=== PATIENT | male | born 1950 | race Asian ===

== ENCOUNTER 2018-06-16 20:04 | Emergency (ER) | payer OTHER ==
[~2018-06-16] VITALS: Ht 162.6 cm; Wt 78.0 kg
[2018-06-16 20:10] VITALS: Ht 162.6 cm; Wt 78.0 kg
[2018-06-16 21:52] VITALS: BP 156/84
== END 2018-06-16 21:38 | disposition home or self-care (01) ==
LOC: ED 20:04
DX: K02.9 Dental caries, unspecified (principal); K08.89 Other specified disorders of teeth and supporting structures
CPT/HCPCS: Q0162